=== PATIENT | male | born 2000 ===

== ENCOUNTER 2024-06-18 14:09 | Emergency (ER) | payer SELFPAY | END 2024-06-18 15:17 | disposition home or self-care (01) | LOC: LL.ED 14:09 | DX: S50.851A Superficial foreign body of right forearm, initial encounter (principal); R55 Syncope and collapse; Z87.891 Personal history of nicotine dependence; Z79.899 Other long term (current) drug therapy; W45.8XXA Other foreign body or object entering through skin, initial encounter | CPT/HCPCS: 73090-RT; 99283; 99284 ==